=== PATIENT | female | born 1980 ===

== ENCOUNTER 2022-01-19 19:50 | Emergency (ER) | payer MEDICAID ==
[2022-01-19] MEDS ORDERED: Bacitracin Oint 1 GM U/D Packet TOP ONE (20:29)
[2022-01-19] MEDS ORDERED: Lidocaine 1% 30 ML SDV INJECT ONE (20:35)
== END 2022-01-19 21:20 | disposition home or self-care (01) ==
LOC: DL.ED 19:50
DX: S60.452A Superficial foreign body of right middle finger, initial encounter (principal); Z88.0 Allergy status to penicillin; Z88.2 Allergy status to sulfonamides; Z79.899 Other long term (current) drug therapy; W45.8XXA Other foreign body or object entering through skin, initial encounter
CPT/HCPCS: 99282; 99283